=== PATIENT | female | born 1945 | race Caucasian/White ===

== ENCOUNTER 2017-07-26 09:04 | Outpatient (CLI) | payer BC, MEDICAID | END 2017-07-26 23:20 | disposition home or self-care (01) | LOC: SMA 09:04 | PROVIDERS: ATTEND Internal Medicine | DX: Z12.31 Encounter for screening mammogram for malignant neoplasm of breast (principal) | CPT/HCPCS: 77067 ==

== ENCOUNTER 2020-05-25 12:02 | Outpatient (CLI) | payer BC, MEDICAID | END 2020-05-25 20:06 | disposition home or self-care (01) | LOC: SMA 12:02 | PROVIDERS: ATTEND Internal Medicine | DX: Z12.31 Encounter for screening mammogram for malignant neoplasm of breast (principal); N64.89 Other specified disorders of breast | CPT/HCPCS: 77067 ==